=== PATIENT | female | born 1970 | race Caucasian/White ===

== ENCOUNTER 2019-05-27 14:00 | Emergency (ER) | payer OTHER | END 2019-05-27 15:45 | disposition home or self-care (01) | LOC: E/R 15:45 | DX: H92.02 Otalgia, left ear (principal); E11.9 Type 2 diabetes mellitus without complications; J02.9 Acute pharyngitis, unspecified; M54.2 Cervicalgia | CPT/HCPCS: 99282; Z7502 ==